=== PATIENT | female | born 1995 | race Caucasian/White ===

== ENCOUNTER 2017-08-19 09:28 | Emergency (ER) | payer MEDICAID ==
[~2017-08-19] VITALS: Ht 170.2 cm; Wt 65.0 kg
[2017-08-19 09:36] VITALS: BP 121/63; PULSE 102; RESP 16; TEMP 99.9; O2SAT 97
[2017-08-19] MEDS ORDERED: HYDR-3580 (10:04)
[2017-08-19] MEDS ORDERED: FLUC100T2 PO (10:04)
[2017-08-19] MEDS ORDERED: AMOX250S2 PO (10:04)
--- NOTE | 2017-08-19 10:35 | PD ---
HPI Chief Complaint: Fever Time Seen by Provider: 10:35 Travel History International Travel<30 days: No Contact w/Intl Traveler<30days: No Traveled to known affect area: No History of Present Illness HPI 21-year-old female was brought to the emergency room by her father with history of throat pain and fever since yesterday. Father said that patient had her tonsils taken out a week ago. The surgery was done in [place]. Patient is visiting her father postop. He got her yesterday and since yesterday is noticed that she has been complaining of throat pain. Cannot talk because of the pain and has been feeling warm. He has not taken her temperature but based on tactile temperature he has been giving her Advil. Last dose of Advil was 8: 00 this morning. Patient is awake but not talking because of the pain. Temperature was 99.9 in the triage. She is on antibiotic and pain medication that has been prescribed by her surgeon that she has been taking. No history of nausea vomiting. No history of difficulty breathing. Patient was mildly tachycardic in triage as well. She is on amoxicillin as antibiotic for past 7 days. [facility] Past Medical History Narrative Medical List of her past medical, surgical, social and family history is reviewed from the nursing note. Medical History: Denies Significant Hx Diminished Hearing: No Tetanus Vaccination: < 5 Years ?: Not Past Surgical History Oral Surgery: Yes (WISDOM TEETH) Tonsillectomy: Yes Social History Alcohol Use: No Tobacco Use: No Substance Use: No Allergies-Medications (Allergen,Severity, Reaction): Coded Allergies: No Known Allergies (Unverified , 08/19/17) Comments No known drug allergies. Reported Meds & Prescriptions Reported Meds & Active Scripts Active Reported Fluconazole 100 Mg Tab 100 Mg PO DAILY Amoxicillin Liq (Amoxicillin) 250 Mg/5 Ml Susp 250 Mg PO TID Narrative Medication List of her home medications reviewed from the nursing note. Review of Systems Except as stated in HPI: all other systems reviewed are Neg General / Constitutional: Positive: Fever HENT: Positive: Sore Throat Physical Exam Narrative GENERAL: Awake, alert, moderate distress SKIN: Focused skin assessment warm/dry. HEAD: Atraumatic. Normocephalic. EYES: Pupils equal and round. No scleral icterus. No injection or drainage. ENT: No nasal bleeding or discharge. Slightly dry mucous membrane, halitosis, postop eschar on the tonsillar bed. No swelling or bleeding NECK: Trachea midline. No JVD. CARDIOVASCULAR: Regular rate and rhythm. No murmur appreciated. RESPIRATORY: No accessory muscle use. Clear to auscultation. Breath sounds equal bilaterally. GASTROINTESTINAL: Abdomen soft, non-tender, nondistended. Hepatic and splenic margins not palpable. MUSCULOSKELETAL: No obvious deformities. No clubbing. No cyanosis. No edema. NEUROLOGICAL: Awake and alert. No obvious cranial nerve deficits. Motor grossly within normal limits. Normal speech. PSYCHIATRIC: Appropriate mood and affect; insight and judgment normal. Data Data Last Documented VS Vital Signs Date Time Temp Pulse Resp B/P (MAP) Pulse Ox O2 Delivery O2 Flow Rate FiO2 08/19/17 13:04 08/19/17 12:30 80 16 96 08/19/17 11:30 Room Air 08/19/17 11:30 98.6 Orders Orders Sepsis Workup Initiated (08/19/17 ) Complete Blood Count With Diff (08/19/17 10:54) Comprehensive Metabolic Panel (08/19/17 10:54) Lactic Acid Sepsis Protocol (08/19/17 10:54) Urinalysis - C+S If Indicated (08/19/17 10:54) Blood Culture (08/19/17 10:54) Chest, Single Ap (08/19/17 10:54) Blood Glucose (08/19/17 10:54) Ecg Monitoring (08/19/17 10:54) Iv Access Insert/Monitor (08/19/17 10:54) Oximetry (08/19/17 10:54) Oxygen Administration (08/19/17 10:54) Sodium Chlor 0.9% 1000 Ml Inj (Ns 1000 M (08/19/17 11:00) Ketorolac Inj (Toradol Inj) (08/19/17 11:00) Ed Discharge Order (08/19/17 12:28) Labs Laboratory Tests Test 08/19/17 11:15 08/19/17 11:30 White Blood Count 9.2 TH/MM3 Red Blood Count 4.52 MIL/MM3 Hemoglobin 13.1 GM/DL Hematocrit 39.5 % Mean Corpuscular Volume 87.3 FL Mean Corpuscular Hemoglobin 29.0 PG Mean Corpuscular Hemoglobin Concent 33.2 % Red Cell Distribution Width 13.8 % Platelet Count 253 TH/MM3 Mean Platelet Volume 7.4 FL Neutrophils (%) (Auto) 76.7 % Lymphocytes (%) (Auto) 13.1 % Monocytes (%) (Auto) 9.6 % Eosinophils (%) (Auto) 0.3 % Basophils (%) (Auto) 0.3 % Neutrophils # (Auto) 7.1 TH/MM3 Lymphocytes # (Auto) 1.2 TH/MM3 Monocytes # (Auto) 0.9 TH/MM3 Eosinophils # (Auto) 0.0 TH/MM3 Basophils # (Auto) 0.0 TH/MM3 CBC Comment DIFF FINAL Differential Comment Blood Urea Nitrogen 9 MG/DL Creatinine 0.90 MG/DL Random Glucose 89 MG/DL Total Protein 7.8 GM/DL Albumin 3.7 GM/DL Calcium Level 8.9 MG/DL Alkaline Phosphatase 66 U/L Aspartate Amino Transf (AST/SGOT) 12 U/L Alanine Aminotransferase (ALT/SGPT) 12 U/L Total Bilirubin 0.4 MG/DL Sodium Level 133 MEQ/L Potassium Level 3.9 MEQ/L Chloride Level 99 MEQ/L Carbon Dioxide Level 26.7 MEQ/L Anion Gap 7 MEQ/L Estimat Glomerular Filtration Rate 81 ML/MIN Lactic Acid Level 0.8 mmol/L Urine Collection Type CLEAN CATCH Urine Color YELLOW Urine Turbidity CLEAR Urine pH 6.0 Urine Specific [place] LESS/EQUAL 1.005 Urine Protein NEG mg/dL Urine Glucose (UA) NEG mg/dL Urine Ketones 15 mg/dL Urine Occult Blood TRACE Urine Nitrite NEG Urine Bilirubin NEG Urine Urobilinogen 0.2 MG/DL Urine Leukocyte Esterase NEG Urine WBC 0-2 /hpf Urine Squamous Epithelial Cells 0-5 /hpf Urine Amorphous Sediment FEW Microscopic Urinalysis Comment CULT NOT INDICATED Urine Collection Time 1130 MDM Medical Decision Making Medical Screen Exam Complete: Yes Emergency Medical Condition: Yes Medical Record Reviewed: Yes Differential Diagnosis Sepsis, postop pain Narrative Course 12:30 PM blood test results are back and within normal limit. Patient was given IV fluid bolus and Toradol for the pain. I went back and reassessed and now she is talking and says she is feeling little better. I am comfortable discharging her home. Diagnosis Primary Impression: Status post tonsillectomy Additional Impression: Postoperative pain Additional Instructions: Drink lots of fluid. Take the medications as per your doctor's directions to finish the course. You can use Tylenol/Advil/Motrin/ibuprofen for breakthrough pain. Return to ER if condition worsens any other new concerns. You must take the temperature with a thermometer before giving any medication for fever. Keep a log of the temperature. Disposition: 01 DISCHARGE HOME Condition: Stable Jacob Medel MD August 19, 2017 10:35
[2017-08-19 10:46] VITALS: BP 108/59; PULSE 71; RESP 16; O2SAT 97
[2017-08-19] MEDS ORDERED: SODIUM CHLOR 0.9% 1000 ML INJ 1,000 ML IV ONE (11:00)
[2017-08-19] MEDS ORDERED: KETOROLAC TROMETHAMINE 30 MG/ML (IVP) VIAL IV PUSH ONE (11:00)
[2017-08-19 11:30] VITALS: BP 115/54; PULSE 81; RESP 16; TEMP 98.6; O2SAT 95; O2SAT 97
[2017-08-19 11:32] LABS: AUTOMATED NEUTROPHIL # 7.1 TH/MM3 (1.8-7.7); BASOPHIL % 0.3 % (0.0-2.0); EOSINOPHIL % 0.3 % (0.0-4.0); HEMATOCRIT 39.5 % (35.0-46.0); HEMOGLOBIN 13.1 GM/DL (11.6-15.3); LYMPH % 13.1 % (9.0-44.0); LYMPHOCYTE # 1.2 TH/MM3 (1.0-4.8); MEAN CELL VOLUME 87.3 FL (80.0-100.0); MEAN CORPUSCULAR HGB CONC 33.2 % (32.0-36.0); MEAN PLATELET VOLUME 7.4 FL (7.0-11.0); MONO % 9.6 % (0.0-8.0); MONOCYTE # 0.9 TH/MM3 (0-0.9); NEUT % 76.7 % (16.0-70.0); PLATELET COUNT 253 TH/MM3 (150-450); RED BLOOD COUNT 4.52 MIL/MM3 (4.00-5.30); RED CELL DISTRIBUTION WIDTH 13.8 % (11.6-17.2); WHITE BLOOD COUNT 9.2 TH/MM3 (4.0-11.0)
[2017-08-19 11:40] LABS: CHLORIDE 99 MEQ/L (98-107); SODIUM (NA) 133 MEQ/L (136-145)
[2017-08-19 11:44] LABS: ALBUMIN 3.7 GM/DL (3.4-5.0); BICARBONATE 26.7 MEQ/L (21.0-32.0); BLOOD UREA NITROGEN 9 MG/DL (7-18); CALCIUM 8.9 MG/DL (8.5-10.1); GLUCOSE,RANDOM 89 MG/DL (74-106)
--- NOTE | 2017-08-19 11:46 | RADRPT ---
EXAM DATE: 08/19/2017 11:26 AM EDT AGE/SEX: 21 years / Female INDICATIONS: Fever,chestcongestion post op tonsillectomy 1 week ago. CLINICAL DATA: This is the patient's initial encounter. Patient reports that signs and symptoms have been present for 1 week and indicates a pain score of 2/10. MEDICAL/SURGICAL HISTORY: None. Tonsillectomy. COMPARISON: No prior [facility] exams available for comparison. FINDINGS: A single AP view of the chest demonstrates the lungs to be symmetrically aerated without e vidence of mass, infiltrate or effusion. The cardiomediastinal contours are unremarkable. Osseous s tructures are intact. CONCLUSION: No acute pulmonary infiltrates. Electronically signed by: Malcolm Welch MD 08/19/2017 11:45 AM EDT
[2017-08-19 11:47] LABS: ALT (GPT) 12 U/L (9-42); AST (GOT) 12 U/L (16-38); GLOMERULAR FILTRATION RATE 81 ML/MIN (>89)
[2017-08-19 11:49] LABS: TOTAL BILIRUBIN ADULT 0.4 MG/DL (0.2-1.0); TOTAL PROTEIN 7.8 GM/DL (6.4-8.2)
[2017-08-19 11:50] LABS: ALKALINE PHOSPHATASE 66 U/L (45-117)
[2017-08-19 11:52] LABS: BILIRUBIN, URINE NEG (NEG); BLOOD, URINE TRACE (NEG); GLUCOSE,URINE NEG (NEG); KETONE, URINE 15 mg/dL (NEG); NITRITE,URINE NEG (NEG); URINE COLOR YELLOW (YELLW/STRAW); URINE LEUKOCYTE ESTERASE NEG (NEG)
[2017-08-19 12:04] LABS: AMORPHOUS SEDIMENT, URINE FEW; SQUAMOUS EPITHELIAL CELL URINE 0-5 /hpf (0-5); WBC, URINE 0-2 /hpf (0-5)
[2017-08-19 12:30] VITALS: BP 112/63; PULSE 80; RESP 16; O2SAT 96
== END 2017-08-19 13:07 | disposition home or self-care (01) ==
LOC: PHED 09:28
DX: R50.9 Fever, unspecified (principal); R07.0 Pain in throat; R00.0 Tachycardia, unspecified; G89.18 Other acute postprocedural pain
CPT/HCPCS: 71045; 80053; 81001; 83605; 85025; 87040; 96361; 96374; 99285; J1885; J7030